=== PATIENT | female | born 1995 | race Caucasian/White ===

== ENCOUNTER 2019-03-20 12:05 | Outpatient (CLI) | payer OTHER ==
[~2019-03-20] VITALS: Ht 165.1 cm; Wt 95.9 kg
[~2019-03-20 12:05] MED LIST: PREN-93 PO
[2019-03-20 13:05] VITALS: BP 112/66; PULSE 86; RESP 18; Ht 165.1 cm; Wt 95.9 kg
[2019-03-20] MEDS ORDERED: HYDROCODONE/APAP (5/325) TAB PO ONE (13:30)
== END 2019-03-20 14:50 | disposition home or self-care (01) ==
LOC: L-D 12:05 → OBT 12:05
PROVIDERS: ATTEND Obstetrics & Gynecology
DX: O26.892 Other specified pregnancy related conditions, second trimester (principal); Z3A.20 20 weeks gestation of pregnancy; R51 Headache
CPT/HCPCS: 80053; 81003; 84560; 85025; Z7500; Z7610; G0463